=== PATIENT | female | born 1975 | race Caucasian/White ===

== ENCOUNTER → 2017-01-11 | Outpatient (CLI) | payer OTHER ==
[~2017-01-11] VITALS: Ht 175.3 cm; Wt 63.5 kg
[~2017-01-11] MED LIST: AMOX200S2 PO; CLAR-13 PO; LANS30CA PO; SINCALIDE 1.27 MCG in IV NORMAL SALINE 50ML 30 ML IV ONE
--- NOTE | 2017-01-11 12:15 | RAD ---
Radionuclide hepatobiliary scan, 01/11/2017: History: Intermittent epigastric pain and nausea Following IV injection of 5.5 mCi of technetium 99m Choletec there was prompt uptake of the radionuclide from the blood stream by the liver. Activity is present in the bile ducts and gallbladder at 10 minutes. Small bowel activity develops at 45 minutes. There was evidence of bile reflux into the stomach. Additional imaging of the gallbladder was performed following IV injection of 1.3 mcg of cholecystokinin. The gallbladder ejection fraction was calculated at 82%. IMPRESSION: 1. No evidence of cystic duct or common bile duct obstruction. 2. The gallbladder ejection fraction is 82%. 3. Bile reflux into the stomach was noted.
--- NOTE | 2017-01-11 12:18 | RAD ---
Right upper quadrant abdominal ultrasound, 01/11/2017: History: Abdominal pain The gallbladder is within normal limits in size. There is a mobile area of increased echogenicity within the gallbladder. No definite posterior acoustic shadowing is seen. The gallbladder whelan are not thickened. The common hepatic duct is of normal caliber. There is no evidence of a hepatic mass. The pancreas and right kidney are unremarkable. IMPRESSION: 1. Small sludge ball or nonshadowing calculus within the gallbladder. 2. No other significant abnormality is detected.
== END | disposition home or self-care (01) ==
LOC: US 08:31
PROVIDERS: ATTEND Internal Medicine Gastroenterology
DX: K21.9 Gastro-esophageal reflux disease without esophagitis (principal); K80.20 Calculus of gallbladder without cholecystitis without obstruction
CPT/HCPCS: 76705; 78226; 96374; 96375; A9537; J2805